=== PATIENT | female | born 1965 | race African-American/Black ===

== ENCOUNTER 2018-11-03 15:01 | Emergency (ER) | payer MEDICAID, SELFPAY ==
[~2018-11-03] VITALS: Ht 157.5 cm; Wt 75.8 kg
[2018-11-03 15:12] VITALS: BP 137/90
[2018-11-03] MEDS ORDERED: KETOROLAC 30 MG/1 ML ONE ×2 (15:48→16:39)
[2018-11-03] MEDS ORDERED: DIAZEPAM 5 MG TABLET ONE (15:48)
--- NOTE | 2018-11-03 15:57 | NUR ---
provider aware that paticolinn refused toradol
[2018-11-03] MEDS ORDERED: DIAZEPAM 5 MG TABLET PO ONE (16:00)
[2018-11-03] MEDS ORDERED: KETOROLAC 30 MG/1 ML IM ONE ×2 (16:00→17:00)
== END 2018-11-03 17:43 | disposition home or self-care (01) ==
LOC: ED 16:30
DX: S39.012A Strain of muscle, fascia and tendon of lower back, initial encounter (principal); S29.012A Strain of muscle and tendon of back wall of thorax, initial encounter; Z88.8 Allergy status to other drugs, medicaments and biological substances; X58.XXXA Exposure to other specified factors, initial encounter; Y93.89 Activity, other specified; Y92.89 Other specified places as the place of occurrence of the external cause; Y99.8 Other external cause status
CPT/HCPCS: 96372; 99283; J1885